=== PATIENT | male | born 1935 | race Caucasian/White ===

== ENCOUNTER 2018-06-02 15:48 | Emergency (ER) | payer MEDICARE, BC ==
[2018-06-02] MEDS ORDERED: Ondansetron PF 4 MG/2 ML Vial ONE (18:16)
[2018-06-02] MEDS ORDERED: Morphine 4 MG/ML VIAL ONE (18:16)
[2018-06-02 18:24] LABS: Hemoglobin 13.5 g/dL (14.0-18.0); Mean Corpuscular Hemoglobin 27.9 pg (27.0-31.0); Mean Corpuscular Volume 85.4 fL (78.0-98.0); Red Blood Cell (RBC) Count 4.83 mill/uL (4.70-6.10); White Blood Cell (WBC) Count 9.3 thou/uL (4.8-10.8)
[2018-06-02 18:25] LABS: #Eosinphils 0.1 thou/uL (0.0-0.7); #Monocytes 0.8 thou/uL (0.11-0.59); #Neutrophils 7.3 thou/uL (1.40-6.50); %Basophils 0.4 % (0.0-1.0); %Eosinophils 1.2 % (0.0-10.0); %Lymphocytes 10.9 % (21.0-51.0); %Monocytes 8.7 % (0.0-10.0); %Neutrophils 78.7 % (42.0-75.0); Mean Corpuscular HGB CONC 32.7 g/dL (32.0-36.0); Platelet Count 183 thou/uL (130-400); RBC Distribution Width 14.9 % (11.5-14.5)
[2018-06-02 18:31] LABS: PTT 27.9 SEC (22.9-36.1); Prothrombin Time 13.4 SEC (12.0-14.7)
[2018-06-02 18:45] LABS: ALT (SGPT) 18 U/L (8-55); AST (SGOT) 16 U/L (5-34); Albumin 3.8 g/dL (3.4-4.8); Alkaline Phosphatase 100 U/L (40-150); Anion Gap 13 mmol/L (10-20); BUN (Urea Nitrogen) 36 mg/dL (8.4-25.7); Bilirubin, Total 0.9 mg/dL (0.2-1.2); CK (CPK) 113 U/L (30-200); Calc. Creatinine Clearance 0 mL/min (70-130); Carbon Dioxide 29 mmol/L (23-31); Chloride 101 mmol/L (98-107); Estimated GFR-MDRD 23; Globulin 3.3 g/dL (2.4-3.5); Glucose 133 mg/dL (83-110); Lipase 7 U/L (8-78); Potassium 4.1 mmol/L (3.5-5.1); Protein, Total 7.1 g/dL (5.8-8.1); Sodium 139 mmol/L (136-145)
--- NOTE | 2018-06-02 18:55 | CT ---
FExam: CT brain Provided clinical history: Trauma FINDINGS: Comparison 07/28/2013. The ventricular system is normal in size and morphology. No evidence for intrac ranial hemorrhage or mass effect. The extracranial soft tissues and osseous structures demonstrate no evidence for an acute process. Mucosal thickening involves the sphenoid sinus. Vascular calcificatio ns are seen. IMPRESSION: No evidence for intracranial hemorrhage or mass effect.
--- NOTE | 2018-06-02 19:02 | CT ---
FExam: CT cervical spine without contrast Provided clinical history: Trauma FINDINGS: Comparison examination [facility] 05/30/2018. Type III odontoid fracture is redemo nstrated. There is less distraction at the portion of the fracture that extends through the lateral m ass and foramen transversarium right of midline. No additional fracture is evident. No evidence for c hange in spinal alignment. Extensive osteophyte formation emanates from the anterior aspects of the c ervical spine. The visualized lung apices appear clear. Minimal prevertebral soft tissue swelling. Va scular calcifications are seen. IMPRESSION: Known type III odontoid fracture is redemonstrated.
--- NOTE | 2018-06-02 19:16 | CT ---
FExam: CT chest, abdomen, and pelvis without contrast Provided clinical history: Trauma FINDINGS: The heart, pericardium and great vessels are suboptimally evaluated in the absence of IV contrast mat erial. Vascular calcification including coronary calcium is demonstrated. There is trace right pleura l fluid. The lungs are free of significant opacity. No pleural fluid or pneumothorax apparent. No alma dence for thoracic lymph node enlargement. The airway appears patent and of normal caliber. The solid abdominal organs are suboptimally evaluated due to absence of IV contrast material but demo nstrate no evidence for an acute process. Probable simple cyst involving left kidney, incompletely ch aracterized. Gallstones are seen. Vascular calcifications are noted. No bowel dilatation, inflammator y fat stranding, free fluid or free air apparent. Fat-containing umbilical hernia. Nondisplaced right L1, L2 and L3 transverse process fractures. 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 IMPRESSION: 1. Nondisplaced right L1, L2 and L3 transverse process fractures. 2. No additional acute abnormality is evident limitations due to lack of IV contrast.
== END 2018-06-02 23:02 ==
LOC: ERS 15:48
DX: S12.100A Unspecified displaced fracture of second cervical vertebra, initial encounter for closed fracture (principal); S32.029A Unspecified fracture of second lumbar vertebra, initial encounter for closed fracture; S32.039A Unspecified fracture of third lumbar vertebra, initial encounter for closed fracture; S32.019A Unspecified fracture of first lumbar vertebra, initial encounter for closed fracture; K21.9 Gastro-esophageal reflux disease without esophagitis; E78.5 Hyperlipidemia, unspecified; I12.9 Hypertensive chronic kidney disease with stage 1 through stage 4 chronic kidney disease, or unspecified chronic kidney disease; N18.4 Chronic kidney disease, stage 4 (severe); Z86.73 Personal history of transient ischemic attack (TIA), and cerebral infarction without residual deficits; E11.9 Type 2 diabetes mellitus without complications; Z79.899 Other long term (current) drug therapy; Z79.82 Long term (current) use of aspirin; Z79.4 Long term (current) use of insulin; W19.XXXA Unspecified fall, initial encounter
CPT/HCPCS: 36415; 70450; 71250; 72125; 74177; 80053; 82550; 83690; 83880; 84484; 85025; 85610; 85730; 93005; 96361; 96374; 96375; J2270; J2405

== ENCOUNTER 2018-07-08 15:02 | Outpatient (CLI) | payer MEDICARE, BC ==
--- NOTE | 2018-07-08 16:19 | CT ---
CT Cervical Spine WO Con HISTORY: Follow-up of cervical spine fracture. Patient is having worsening pain COMPARISON: 06/02/2018 study. FINDINGS: Prominent bridging anterior osteophytic changes are seen extending from C2 to the T1 level. There is new compression changes involving the superior endplate of T1 in addition there are bilateral fractures at C7 which extend through the superior articular facet and pedicle region and ar e nondisplaced. Both of these findings are new as compared to the prior exam. The base of dens fracture is not displaced however there is increased lucency and widening across the fracture line as compared to the prior examination. IMPRESSION: 1. Worsened appearance to the fracture along the base of the dens. The fracture is not displaced perdomo armani there is increased lucency associated the fracture line. 2. Development of compression changes involving the superior endplate of T1 fracture line extends thr ough to the inferior endplate. 3. Bilateral facet/pedicle fractures at C7 also new. 4. Findings telephoned to Dr. Patricia Ochoa's PA.
== END 2018-07-08 15:03 | disposition home or self-care (01) ==
LOC: TBSIIMAG 15:02
PROVIDERS: ATTEND Neurological Surgery
DX: S12.601A Unspecified nondisplaced fracture of seventh cervical vertebra, initial encounter for closed fracture (principal); S22.019A Unspecified fracture of first thoracic vertebra, initial encounter for closed fracture
CPT/HCPCS: 72125

== ENCOUNTER 2018-08-05 13:32 | Outpatient (CLI) | payer MEDICARE, BC ==
--- NOTE | 2018-08-05 14:05 | RAD ---
XR Cerv Sp Ap Lat STANDARD History: [Fall from a tractor. Follow-up injury.] Comparison: CT cervical spine July 08, 2018. Findings: No further displacement of the transversely oriented odontoid fracture through the base of the odontoid process. T1 fracture not well seen. The bilateral C7 pars interarticularis fractures are not well appreciated. Bridging anterior osteophytes of the cervical spine without significant degenerative disc space heigh t loss. Impression: No further displacement of the C2 fracture extending through the body as well as the bila teral C1/C2 facets. And right foramen transversarium.
== END 2018-08-05 13:33 | disposition home or self-care (01) ==
LOC: TBSIIMAG 13:32
PROVIDERS: ATTEND Neurological Surgery
DX: S12.9XXA Fracture of neck, unspecified, initial encounter (principal)
CPT/HCPCS: 72040

== ENCOUNTER 2018-09-11 15:09 | Outpatient (CLI) | payer MEDICARE, BC ==
--- NOTE | 2018-09-11 17:15 | RAD ---
CERVICAL SPINE 4 VIEWS: HISTORY: Followup cervical fracture. COMPARISON: Comparison is made to cervical spine film of 08/05/2018. FINDINGS: A dense fracture has been previously described involving the base of the dens suggesting a probable t ype III fracture which may involve the lateral masses. There is slight displacement; however, this does not appear to be significantly changed from 08/05/2018 . Alignment below C2 is maintained and is stable. Large anterior bridging osteophytes throughout the c ervical spine are again noted. IMPRESSION: C2 fracture appears stable from 08/05/2018. POS: [facility]
== END 2018-09-11 15:10 | disposition home or self-care (01) ==
LOC: TBSIIMAG 15:09
PROVIDERS: ATTEND Neurological Surgery
DX: S12.100D Unspecified displaced fracture of second cervical vertebra, subsequent encounter for fracture with routine healing (principal)
CPT/HCPCS: 72040

== ENCOUNTER 2022-03-02 14:59 | Observation (INO) | payer MEDICARE, BC ==
[2022-03-02 15:49] LABS: #Eosinphils 0.1 thou/uL (0.0-0.7); #Lymphocytes 1.4 thou/uL (1.20-3.40); #Monocytes 0.6 thou/uL (0.11-0.59); #Neutrophils 3.4 thou/uL (1.40-6.50); %Basophils 0.2 % (0.0-1.0); %Eosinophils 2.4 % (0.0-10.0); %Lymphocytes 25.1 % (21.0-51.0); %Neutrophils 61.2 % (42.0-75.0); Hemoglobin 12.5 g/dL (14.0-18.0); Mean Corpuscular HGB CONC 33.8 g/dL (32.0-36.0); Mean Corpuscular Hemoglobin 32.4 pg (27.0-31.0); Mean Corpuscular Volume 95.9 fl (78.0-98.0); Mean Platelet Volume 8.7 fL (7.4-10.4); Platelet Count 192 10x3/uL (130-400); RBC Distribution Width 12.6 % (11.5-14.5); Red Blood Cell (RBC) Count 3.86 mill/uL (4.70-6.10); White Blood Cell (WBC) Count 5.5 10x3/uL (4.8-10.8)
[2022-03-02 16:00] LABS: INR-International Normal Ratio 0.9; PTT 29.7 sec (22.9-36.1); Prothrombin Time 12.8 sec (12.0-14.7)
[2022-03-02 16:14] LABS: ALT (SGPT) 46 U/L (8-55); AST (SGOT) 40 U/L (5-34); Albumin 2.7 g/dL (3.4-4.8); Alkaline Phosphatase 132 U/L (40-110); Anion Gap 12 mmol/L (10-20); BUN (Urea Nitrogen) 35 mg/dL (8.4-25.7); Bilirubin, Total 0.5 mg/dL (0.2-1.2); Calc. Creatinine Clearance 0 mL/min (70-130); Calcium 8.3 mg/dL (7.8-10.44); Carbon Dioxide 18 mmol/L (23-31); Chloride 115 mmol/L (98-107); Estimated GFR 15; Globulin 4.1 g/dL (2.4-3.5); Glucose 102 mg/dL (83-110); Potassium 5.4 mmol/L (3.5-5.1); Protein, Total 6.8 g/dL (5.8-8.1); Sodium 140 mmol/L (136-145)
[2022-03-02] MEDS ORDERED: Sodium Bicarbonate 150 MEQ in Dextrose 5% in Water 1,000 ML IV SCH ×2 (17:00→18:30)
[2022-03-02] MEDS ORDERED: Nitroglycerin 2% Ointment 1 INCH/1 GM Packet ONE (17:46)
[2022-03-02] MEDS ORDERED: LOKELMA 10 GM PACKET PO SCH ×3 (18:30→21:00)
[2022-03-02] MEDS ORDERED: Ondansetron ODT 4 MG TAB PO PRN (18:33)
[2022-03-02] MEDS ORDERED: Ondansetron PF 4 MG/2 ML Vial IVP PRN (18:33)
[2022-03-02] MEDS ORDERED: Acetaminophen 325 MG TAB PO PRN (18:33)
[2022-03-02 18:34] LABS: CKMB 3.5 ng/mL (0-6.6)
[2022-03-02 20:23] LABS: SARS-CoV-2 NAA Rapid Test Not Detected (NotDetected)
[2022-03-02] MEDS: hydrALAZINE 25 MG TAB PO SCH (22:26)
[2022-03-03] VITALS: BMI 33.0
[2022-03-03] MEDS: hydrALAZINE 25 MG TAB PO SCH ×2 (00:20→10:08)
[2022-03-03] MEDS ORDERED: Sodium Bicarbonate 150 MEQ in Dextrose 5% in Water 1,000 ML IV SCH (02:15)
[2022-03-03 04:36] LABS: #Eosinphils 0.1 thou/uL (0.0-0.7); #Lymphocytes 1.4 thou/uL (1.20-3.40); #Monocytes 0.6 thou/uL (0.11-0.59); #Neutrophils 3.5 thou/uL (1.40-6.50); %Basophils 0.2 % (0.0-1.0); %Eosinophils 2.1 % (0.0-10.0); %Lymphocytes 25.5 % (21.0-51.0); %Monocytes 10.1 % (0.0-10.0); %Neutrophils 62.1 % (42.0-75.0); Mean Corpuscular HGB CONC 33.4 g/dL (32.0-36.0); Mean Corpuscular Hemoglobin 32.4 pg (27.0-31.0); Platelet Count 169 10x3/uL (130-400); RBC Distribution Width 12.6 % (11.5-14.5); Red Blood Cell (RBC) Count 3.38 mill/uL (4.70-6.10); White Blood Cell (WBC) Count 5.6 10x3/uL (4.8-10.8)
[2022-03-03 04:57] LABS: Anion Gap 10 mmol/L (10-20); BUN (Urea Nitrogen) 32 mg/dL (8.4-25.7); Calc. Creatinine Clearance 23 mL/min (70-130); Calcium 7.9 mg/dL (7.8-10.44); Carbon Dioxide 21 mmol/L (23-31); Chloride 112 mmol/L (98-107); Estimated GFR 17; Glucose 148 mg/dL (83-110); Potassium 4.5 mmol/L (3.5-5.1); Sodium 138 mmol/L (136-145)
[2022-03-03] MEDS ORDERED: Carvedilol 6.25 MG TAB PO SCH ×2 (08:00→09:00)
[2022-03-03] MEDS ORDERED: Aspirin 81 mg Enteric Coated Tablet PO SCH (09:00)
[2022-03-03] MEDS ORDERED: NIFEdipine XL 30 MG TAB PO SCH (09:00)
[2022-03-03 16:47] VITALS: BP 169/70; TEMP 98.2
[2022-03-03] MEDS ORDERED: Atorvastatin Calcium 10 MG TAB PO SCH (21:00)
== END 2022-03-03 16:40 | disposition home or self-care (01) ==
LOC: ERS 14:59 → ERHOLD 17:41 → 2NO 23:30
PROVIDERS: ADMIT Internal Medicine; ATTEND Internal Medicine
DX: I13.10 Hypertensive heart and chronic kidney disease without heart failure, with stage 1 through stage 4 chronic kidney disease, or unspecified chronic kidney disease (principal); E11.22 Type 2 diabetes mellitus with diabetic chronic kidney disease; N18.4 Chronic kidney disease, stage 4 (severe); N17.9 Acute kidney failure, unspecified; D63.1 Anemia in chronic kidney disease; E11.10 Type 2 diabetes mellitus with ketoacidosis without coma; E87.5 Hyperkalemia; K21.9 Gastro-esophageal reflux disease without esophagitis; E78.5 Hyperlipidemia, unspecified; I25.10 Atherosclerotic heart disease of native coronary artery without angina pectoris; E66.9 Obesity, unspecified; Z68.33 Body mass index [BMI] 33.0-33.9, adult; Z66 Do not resuscitate; Z86.73 Personal history of transient ischemic attack (TIA), and cerebral infarction without residual deficits; Z87.11 Personal history of peptic ulcer disease; Z79.4 Long term (current) use of insulin; Z79.82 Long term (current) use of aspirin; Z79.899 Other long term (current) drug therapy; Z95.5 Presence of coronary angioplasty implant and graft; Z20.822 Contact with and (suspected) exposure to COVID-19
CPT/HCPCS: 71045; 80048; 80053; 82553; 82962; 83605; 83880; 84484; 85025 ×2; 85610; 85730; 93005; 96374; 99285; U0002; 36415; 36416; G0378; J7070

== ENCOUNTER 2022-06-15 10:42 | Outpatient (CLI) | payer MEDICARE, BC | END 2022-06-15 10:43 | disposition home or self-care (01) | LOC: RAD 10:42 | PROVIDERS: ATTEND Internal Medicine Nephrology | DX: N18.5 Chronic kidney disease, stage 5 (principal); J90 Pleural effusion, not elsewhere classified; R91.8 Other nonspecific abnormal finding of lung field | CPT/HCPCS: 36415; 71046; 80048; 86705; 86706; 86803; 87340; 87522 ==

== ENCOUNTER 2022-06-26 20:36 | Inpatient (IN) | payer MEDICARE, BC ==
[2022-06-26 21:11] LABS: #Eosinphils 0.1 thou/uL (0.0-0.7); #Lymphocytes 1.3 thou/uL (1.20-3.40); %Basophils 0.4 % (0.0-1.0); %Eosinophils 0.6 % (0.0-10.0); %Lymphocytes 12.9 % (21.0-51.0); %Monocytes 9.2 % (0.0-10.0); Hemoglobin 11.8 g/dL (14.0-18.0); Mean Corpuscular HGB CONC 33.1 g/dL (32.0-36.0); Mean Corpuscular Hemoglobin 32.2 pg (27.0-31.0); Mean Corpuscular Volume 97.2 fl (78.0-98.0); Mean Platelet Volume 9.6 fL (7.4-10.4); Platelet Count 164 10x3/uL (130-400); RBC Distribution Width 13.1 % (11.5-14.5); Red Blood Cell (RBC) Count 3.67 mill/uL (4.70-6.10); White Blood Cell (WBC) Count 10.4 10x3/uL (4.8-10.8)
[2022-06-26 21:33] LABS: ALT (SGPT) 28 U/L (8-55); AST (SGOT) 33 U/L (5-34); Albumin 2.9 g/dL (3.4-4.8); Alkaline Phosphatase 111 U/L (40-110); Anion Gap 15 mmol/L (10-20); BUN (Urea Nitrogen) 63 mg/dL (8.4-25.7); Bilirubin, Total 0.3 mg/dL (0.2-1.2); CK (CPK) 59 U/L (30-200); Calc. Creatinine Clearance 0 mL/min (70-130); Calcium 8.3 mg/dL (7.8-10.44); Carbon Dioxide 16 mmol/L (23-31); Chloride 113 mmol/L (98-107); Estimated GFR 12; Globulin 4.1 g/dL (2.4-3.5); Glucose 189 mg/dL (83-110); Potassium 5.7 mmol/L (3.5-5.1); Sodium 138 mmol/L (136-145)
[2022-06-26] MEDS ORDERED: Dextrose 50% Abboject 50 ML SYRINGE ONE (22:22)
[2022-06-26] MEDS ORDERED: Insulin Regular 300 UNITS/3 ML VIAL ONE (22:22)
[2022-06-26] MEDS ORDERED: Sodium Bicarb 50 MEQ/50 ML VIAL ONE (22:22)
[2022-06-26] MEDS ORDERED: Dextrose 50% Abboject 50 ML SYRINGE SLOW IVP PRN (23:41)
[2022-06-26] MEDS ORDERED: Acetaminophen 325 MG TAB PO PRN (23:41)
[2022-06-26] MEDS ORDERED: Dextrose 5% in Water 1,000 ML IV PRN (23:41)
[2022-06-26] MEDS ORDERED: HumaLOG 300 UNITS/3 ML VIAL SC PRN ×2 (23:42)
[2022-06-27 01:23] LABS: HBSAB Concentration Less than 8.00 mIU/mL; HBSAg Index 0.24 S/CO (0-0.99); Hep B Core Total Ab Non-Reactive (NonReactive); Hep B Core Total Index 0.07 S/CO (0-0.79); Hep B Surf AB Non-Reactive (NonReactive); Hep B Surf Ag Non-Reactive S/CO (NonReactive)
[2022-06-27 01:26] LABS: Hep C IgG Ab Reflex HepC Qnt S/CO (NonReactive); Hep C Index 15.51 S/CO (0-0.79)
[2022-06-27 04:56] VITALS: BMI 32.8
[2022-06-27 05:19] LABS: #Eosinphils 0.1 thou/uL (0.0-0.7); #Lymphocytes 1.4 thou/uL (1.20-3.40); #Monocytes 1.1 thou/uL (0.11-0.59); #Neutrophils 6.7 thou/uL (1.40-6.50); %Basophils 0.3 % (0.0-1.0); %Eosinophils 0.6 % (0.0-10.0); %Lymphocytes 14.6 % (21.0-51.0); %Monocytes 11.5 % (0.0-10.0); %Neutrophils 73.1 % (42.0-75.0); Hemoglobin 10.9 g/dL (14.0-18.0); Mean Corpuscular HGB CONC 33.5 g/dL (32.0-36.0); Mean Corpuscular Hemoglobin 31.8 pg (27.0-31.0); Mean Platelet Volume 9.7 fL (7.4-10.4); Platelet Count 130 10x3/uL (130-400); RBC Distribution Width 12.8 % (11.5-14.5); Red Blood Cell (RBC) Count 3.43 mill/uL (4.70-6.10); White Blood Cell (WBC) Count 9.2 10x3/uL (4.8-10.8)
[2022-06-27 05:37] LABS: Anion Gap 15 mmol/L (10-20); BUN (Urea Nitrogen) 43 mg/dL (8.4-25.7); Calc. Creatinine Clearance 22 mL/min (70-130); Calcium 7.9 mg/dL (7.8-10.44); Carbon Dioxide 20 mmol/L (23-31); Chloride 110 mmol/L (98-107); Estimated GFR 16; Glucose 115 mg/dL (83-110); Potassium 4.5 mmol/L (3.5-5.1); Sodium 140 mmol/L (136-145)
[2022-06-27] MEDS ORDERED: NIFEdipine XL 30 MG TAB PO SCH (09:00)
[2022-06-27] MEDS: hydrALAZINE 25 MG TAB PO SCH ×2 (09:59→21:50)
[2022-06-27] MEDS: Aspirin 81 mg Enteric Coated Tablet PO SCH (09:59)
[2022-06-27] MEDS: Furosemide 40 MG TAB PO SCH ×2 (09:59→16:17)
[2022-06-27] MEDS: Heparin 5,000 UNITS/ML VIAL SC SCH ×3 (09:59→21:52)
[2022-06-27] MEDS: Carvedilol 6.25 MG TAB PO SCH ×2 (09:59→21:49)
[2022-06-27] MEDS ORDERED: Atorvastatin Calcium 40 MG TAB PO SCH (21:00)
[2022-06-28 05:20] LABS: #Eosinphils 0.1 thou/uL (0.0-0.7); #Lymphocytes 1.8 thou/uL (1.20-3.40); #Monocytes 0.9 thou/uL (0.11-0.59); #Neutrophils 4.8 thou/uL (1.40-6.50); %Basophils 0.5 % (0.0-1.0); %Eosinophils 0.8 % (0.0-10.0); %Lymphocytes 23.5 % (21.0-51.0); %Monocytes 11.3 % (0.0-10.0); %Neutrophils 63.8 % (42.0-75.0); Hemoglobin 10.3 g/dL (14.0-18.0); Mean Corpuscular HGB CONC 34.1 g/dL (32.0-36.0); Mean Corpuscular Hemoglobin 32.7 pg (27.0-31.0); Mean Corpuscular Volume 95.8 fl (78.0-98.0); Mean Platelet Volume 9.8 fL (7.4-10.4); Platelet Count 118 10x3/uL (130-400); RBC Distribution Width 12.8 % (11.5-14.5); Red Blood Cell (RBC) Count 3.14 mill/uL (4.70-6.10); White Blood Cell (WBC) Count 7.5 10x3/uL (4.8-10.8)
[2022-06-28 05:31] LABS: Anion Gap 12 mmol/L (10-20); BUN (Urea Nitrogen) 39 mg/dL (8.4-25.7); Calc. Creatinine Clearance 22 mL/min (70-130); Carbon Dioxide 24 mmol/L (23-31); Chloride 107 mmol/L (98-107); Potassium 4.2 mmol/L (3.5-5.1); Sodium 139 mmol/L (136-145)
[2022-06-28 05:32] LABS: Calcium 7.9 mg/dL (7.8-10.44); Estimated GFR 16; Glucose 126 mg/dL (83-110)
[2022-06-28] MEDS ORDERED: NIFEdipine XL 60 MG TAB PO SCH (09:00)
[2022-06-28] MEDS ORDERED: NIFEdipine XL 30 MG TAB PO SCH (09:00)
[2022-06-28] MEDS: hydrALAZINE 25 MG TAB PO SCH (10:01)
[2022-06-28] MEDS: Carvedilol 6.25 MG TAB PO SCH (10:01)
[2022-06-28] MEDS: Furosemide 40 MG TAB PO SCH (10:01)
[2022-06-28] MEDS: Aspirin 81 mg Enteric Coated Tablet PO SCH (10:03)
[2022-06-28] MEDS: Heparin 5,000 UNITS/ML VIAL SC SCH (10:03)
[2022-06-28 12:00] VITALS: BP 138/65; TEMP 98.1
[2022-06-28] MEDS ORDERED: Lidocaine 4% Patch TD SCH (12:00)
[2022-06-28 12:01] LABS: Iron 28 ug/dL (65-175); Iron Binding Capacity, Total 163 mcg/dL (261-462)
[2022-06-28 12:03] LABS: Iron 27 ug/dL (65-175); Iron Binding Capacity, Total 149 mcg/dL (261-462)
[2022-06-28] MEDS ORDERED: LIDOCAINE Patch Removal TOP SCH (23:59)
== END 2022-06-28 16:03 | disposition home or self-care (01) | DRG 640 ==
LOC: ERS 20:36 → ERHOLD 22:25 → 2NO 06-27 04:05
PROVIDERS: ADMIT Student in an Organized Health Care Education/Training Program; ATTEND Student in an Organized Health Care Education/Training Program
PROC: 5A1D70Z Performance of Urinary Filtration, Intermittent, Less than 6 Hours Per Day (ICD-10-PCS; principal; 2022-06-27)
DX: E87.70 Fluid overload, unspecified (principal); J96.01 Acute respiratory failure with hypoxia; N18.6 End stage renal disease; J91.8 Pleural effusion in other conditions classified elsewhere; I12.0 Hypertensive chronic kidney disease with stage 5 chronic kidney disease or end stage renal disease; E87.5 Hyperkalemia; Z66 Do not resuscitate; I25.10 Atherosclerotic heart disease of native coronary artery without angina pectoris; E78.5 Hyperlipidemia, unspecified; E11.22 Type 2 diabetes mellitus with diabetic chronic kidney disease; D63.1 Anemia in chronic kidney disease; E87.20 Acidosis, unspecified; R77.9 Abnormality of plasma protein, unspecified; E88.09 Other disorders of plasma-protein metabolism, not elsewhere classified; B19.20 Unspecified viral hepatitis C without hepatic coma; M54.2 Cervicalgia; D69.6 Thrombocytopenia, unspecified; Z79.899 Other long term (current) drug therapy; Z95.5 Presence of coronary angioplasty implant and graft; Z83.3 Family history of diabetes mellitus; Z82.49 Family history of ischemic heart disease and other diseases of the circulatory system; Z99.2 Dependence on renal dialysis; Z86.73 Personal history of transient ischemic attack (TIA), and cerebral infarction without residual deficits
CPT/HCPCS: 36415; 36416; 71045; 80048; 80053; 82550; 82728; 83540; 83550; 83880; 84484; 85025; 86704; 90935; 93005; 96374; 96375; G0257; J1644; J1815; J7999

== ENCOUNTER 2022-09-25 01:24 | Inpatient (IN) | payer MEDICARE, BC ==
[2022-09-25 02:35] LABS: #Monocytes 1.7 thou/uL (0.11-0.59); #Neutrophils 10.8 thou/uL (1.40-6.50); %Basophils 0.2 % (0.0-1.0); %Eosinophils 0.3 % (0.0-10.0); %Lymphocytes 9.4 % (21.0-51.0); %Monocytes 12.3 % (0.0-10.0); %Neutrophils 77.2 % (42.0-75.0); Hematocrit 31.9 % (42.0-52.0); Hemoglobin 10.5 g/dL (14.0-18.0); Mean Corpuscular HGB CONC 32.9 g/dL (32.0-36.0); Mean Corpuscular Volume 97.3 fl (78.0-98.0); Mean Platelet Volume 11.4 fL (7.4-10.4); Platelet Count 137 10x3/uL (130-400); RBC Distribution Width 14.4 % (11.5-14.5); Red Blood Cell (RBC) Count 3.28 mill/uL (4.70-6.10)
[2022-09-25 02:56] LABS: Anion Gap 14 mmol/L (10-20); Carbon Dioxide 27 mmol/L (23-31); Chloride 98 mmol/L (98-107); Potassium 3.9 mmol/L (3.5-5.1); Sodium 135 mmol/L (136-145)
[2022-09-25 02:57] LABS: ALT (SGPT) 22 U/L (8-55); AST (SGOT) 26 U/L (5-34); Albumin 2.7 g/dL (3.4-4.8); Alkaline Phosphatase 78 U/L (40-110); BUN (Urea Nitrogen) 38 mg/dL (8.4-25.7); Bilirubin, Total 0.7 mg/dL (0.2-1.2); Calc. Creatinine Clearance 0 mL/min (70-130); Estimated GFR 11; Globulin 3.7 g/dL (2.4-3.5); Glucose 118 mg/dL (83-110); Protein, Total 6.4 g/dL (5.8-8.1)
[2022-09-25] MEDS ORDERED: fentaNYL 50 mcg/mL 1 mL Vial ONE ×2 (02:58→06:06)
[2022-09-25] MEDS ORDERED: Boostrix 0.5 ML (Tdap) VIAL (>/=7 yrs of age) ONE (03:58)
[2022-09-25] MEDS ORDERED: Bacitracin 1 PK ONE (03:58)
[2022-09-25] MEDS ORDERED: Ondansetron PF 4 MG/2 ML Vial IVP PRN (05:08)
[2022-09-25] MEDS ORDERED: TETANUS, DIPHTHERIA TOX,ADULT (TDVAX) 0.5 ML VIAL IM ONE (05:08)
[2022-09-25] MEDS ORDERED: Ipratropium/Albuterol 3 ML NEB NEB PRN (05:08)
[2022-09-25] MEDS ORDERED: traMADol HCl 50 MG TAB PO PRN (05:13)
[2022-09-25] MEDS ORDERED: Sodium Chloride 0.9% 1,000 ML IV SCH (05:15)
[2022-09-25 07:21] VITALS: BMI 31.4
[2022-09-25] MEDS: Acetaminophen 500 MG TAB PO SCH ×3 (08:27→18:46)
[2022-09-25] MEDS: traMADol HCl 50 MG TAB PO SCH ×3 (08:27→23:01)
[2022-09-25] MEDS ORDERED: CEFAZOLIN 2 GM in Sodium Chloride 0.9% 100 ML IVPB SCH (08:30)
[2022-09-25 08:36] LABS: PTT 33.5 sec (22.9-36.1)
[2022-09-25] MEDS: Polyethylene Glycol 3350 17 GM Packet PO SCH (08:42)
[2022-09-25] MEDS: Senokot S 8.6-50 MG TAB PO SCH ×2 (08:43→20:58)
[2022-09-25] MEDS: Famotidine/PF 20 mg/2ml Vial SLOW IVP SCH (08:48)
[2022-09-25 13:20] LABS: #Basophils 0.1 thou/uL (0.0-0.2); #Eosinphils 0.2 thou/uL (0.0-0.7); #Monocytes 0.9 thou/uL (0.11-0.59); %Basophils 0.4 % (0.0-1.0); %Eosinophils 1.4 % (0.0-10.0); %Lymphocytes 5.6 % (21.0-51.0); %Monocytes 6.7 % (0.0-10.0); %Neutrophils 85.5 % (42.0-75.0); Hematocrit 39.2 % (42.0-52.0); Hemoglobin 12.8 g/dL (14.0-18.0); Mean Corpuscular HGB CONC 32.7 g/dL (32.0-36.0); Mean Corpuscular Hemoglobin 32.4 pg (27.0-31.0); Mean Corpuscular Volume 99.2 fl (78.0-98.0); Mean Platelet Volume 11.6 fL (7.4-10.4); Platelet Count 148 10x3/uL (130-400); RBC Distribution Width 14.3 % (11.5-14.5); Red Blood Cell (RBC) Count 3.95 mill/uL (4.70-6.10)
[2022-09-25 13:42] LABS: Anion Gap 19 mmol/L (10-20); BUN (Urea Nitrogen) 45 mg/dL (8.4-25.7); Calc. Creatinine Clearance 15 mL/min (70-130); Calcium 8.6 mg/dL (7.8-10.44); Carbon Dioxide 23 mmol/L (23-31); Chloride 99 mmol/L (98-107); Estimated GFR 11; Glucose 128 mg/dL (83-110); Phosphorus 5.5 mg/dL (2.3-4.7); Potassium 4.8 mmol/L (3.5-5.1); Sodium 136 mmol/L (136-145)
[2022-09-25 14:11] LABS: Lactic Acid 1.9 mmol/L (0.5-2.2)
[2022-09-25] MEDS ORDERED: VANCOMYCIN 1.25 GM/250 ML BAG 1.25 GM in Premix Bag 1 BAG IVPB SCH (16:45)
[2022-09-25] MEDS ORDERED: Vancomycin Diaylsis Sliding Scale (Wt 71-99) FS SCH (17:30)
[2022-09-25] MEDS ORDERED: VANCOMYCIN 2 GRAM/500 ML BAG 2 GM in Premix Bag 1 BAG IVPB SCH (18:00)
[2022-09-25 23:19] LABS: Bacteria/HPF None Seen HPF (None Seen); Bilirubin Negative (Negative); Blood, Urine Trace (Negative); Clarity Clear (Clear); Glucose, Urine (Dipstick) 70 mg/dL (Negative); Ketone, Urine Negative (Negative); Leukocyte Negative Leu/uL (Negative); Nitrite Negative (Negative); Protein, Urine (Dipstick) 300 mg/dL (Neg-Trace); RBC/HPF 0-3 HPF (0-3); Specific Gravity, Urine 1.014 (1.002-1.036); Squamous Epithelial 0-3 HPF (0-3); WBC/HPF 0-3 HPF (0-3)
[2022-09-25] MEDS ORDERED: Sevoflurane 250 ML INH ANEST BOTTLE ONE (23:53)
[2022-09-26] MEDS: Acetaminophen 500 MG TAB PO SCH ×5 (00:13→23:13)
[2022-09-26] MEDS: traMADol HCl 50 MG TAB PO SCH ×3 (05:06→21:13)
[2022-09-26 06:41] LABS: INR-International Normal Ratio 1.1; PTT 31.5 sec (22.9-36.1); Prothrombin Time 14.1 sec (12.0-14.7)
[2022-09-26 07:12] LABS: #Basophils 0.1 thou/uL (0.0-0.2); #Eosinphils 0.4 thou/uL (0.0-0.7); #Monocytes 1.5 thou/uL (0.11-0.59); #Neutrophils 10.1 thou/uL (1.40-6.50); %Basophils 0.4 % (0.0-1.0); %Eosinophils 2.6 % (0.0-10.0); %Lymphocytes 9.7 % (21.0-51.0); %Monocytes 11.5 % (0.0-10.0); %Neutrophils 75.1 % (42.0-75.0); Hematocrit 35.6 % (42.0-52.0); Hemoglobin 11.9 g/dL (14.0-18.0); Mean Corpuscular HGB CONC 33.4 g/dL (32.0-36.0); Mean Corpuscular Hemoglobin 32.2 pg (27.0-31.0); Mean Platelet Volume 11.6 fL (7.4-10.4); Platelet Count 132 10x3/uL (130-400); RBC Distribution Width 14.3 % (11.5-14.5); White Blood Cell (WBC) Count 13.4 10x3/uL (4.8-10.8)
[2022-09-26 07:22] LABS: Mean Corpuscular Volume 96.2 fl (78.0-98.0)
[2022-09-26 08:12] LABS: Anion Gap 20 mmol/L (10-20); BUN (Urea Nitrogen) 57 mg/dL (8.4-25.7); Calc. Creatinine Clearance 13 mL/min (70-130); Calcium 8.1 mg/dL (7.8-10.44); Carbon Dioxide 22 mmol/L (23-31); Chloride 96 mmol/L (98-107); Estimated GFR 9; Glucose 127 mg/dL (83-110); Phosphorus 7.2 mg/dL (2.3-4.7); Potassium 4.3 mmol/L (3.5-5.1); Sodium 134 mmol/L (136-145)
[2022-09-26] MEDS ORDERED: Heparin 10,000 UNITS/ 10 ML VIAL ONE (08:37)
[2022-09-26] MEDS: Morphine 2 MG/ML VIAL SLOW IVP PRN ×3 (08:51→21:13)
[2022-09-26] MEDS: Senokot S 8.6-50 MG TAB PO SCH ×2 (08:52→21:13)
[2022-09-26] MEDS: Polyethylene Glycol 3350 17 GM Packet PO SCH (08:52)
[2022-09-26] MEDS: Famotidine/PF 20 mg/2ml Vial SLOW IVP SCH (08:52)
[2022-09-26 10:10] LABS: HBSAB Concentration Less than 8.00 mIU/mL; Hep B Surf AB Non-Reactive (NonReactive); Hep B Surf Ag Non-Reactive S/CO (NonReactive)
[2022-09-26] MEDS: Sevelamer Carbonate 800 MG TAB PO SCH ×2 (13:20→18:37)
[2022-09-26] MEDS: cefTRIAXone\\ROCEPHIN 2 GM in Sodium Chloride 0.9% 100 ML IVPB SCH (14:53)
[2022-09-27] MEDS: Acetaminophen 500 MG TAB PO SCH ×4 (05:11→23:04)
[2022-09-27] MEDS: traMADol HCl 50 MG TAB PO SCH ×3 (05:11→21:18)
[2022-09-27 05:43] LABS: #Basophils 0.1 thou/uL (0.0-0.2); #Eosinphils 0.3 thou/uL (0.0-0.7); #Monocytes 1.3 thou/uL (0.11-0.59); #Neutrophils 7.7 thou/uL (1.40-6.50); %Basophils 0.5 % (0.0-1.0); %Eosinophils 3.1 % (0.0-10.0); %Lymphocytes 12.7 % (21.0-51.0); %Monocytes 12.1 % (0.0-10.0); %Neutrophils 71.2 % (42.0-75.0); Hematocrit 33.5 % (42.0-52.0); Mean Corpuscular HGB CONC 32.8 g/dL (32.0-36.0); Mean Corpuscular Hemoglobin 31.9 pg (27.0-31.0); Mean Corpuscular Volume 97.1 fl (78.0-98.0); Mean Platelet Volume 11.1 fL (7.4-10.4); Platelet Count 150 10x3/uL (130-400); Red Blood Cell (RBC) Count 3.45 mill/uL (4.70-6.10); White Blood Cell (WBC) Count 10.8 10x3/uL (4.8-10.8)
[2022-09-27] MEDS: Sevelamer Carbonate 800 MG TAB PO SCH ×3 (08:13→16:52)
[2022-09-27] MEDS: Famotidine/PF 20 mg/2ml Vial SLOW IVP SCH (08:13)
[2022-09-27] MEDS: Senokot S 8.6-50 MG TAB PO SCH ×2 (08:13→21:18)
[2022-09-27] MEDS: Polyethylene Glycol 3350 17 GM Packet PO SCH ×2 (08:13→08:17)
[2022-09-27] MEDS: cefTRIAXone\\ROCEPHIN 2 GM in Sodium Chloride 0.9% 100 ML IVPB SCH (13:53)
[2022-09-28] MEDS: traMADol HCl 50 MG TAB PO SCH ×3 (05:09→22:36)
[2022-09-28] MEDS: Acetaminophen 500 MG TAB PO SCH ×4 (05:09→23:53)
[2022-09-28 05:16] LABS: #Eosinphils 0.3 thou/uL (0.0-0.7); #Monocytes 1.1 thou/uL (0.11-0.59); #Neutrophils 7.3 thou/uL (1.40-6.50); %Basophils 0.2 % (0.0-1.0); %Eosinophils 2.9 % (0.0-10.0); %Lymphocytes 9.7 % (21.0-51.0); %Monocytes 11.5 % (0.0-10.0); %Neutrophils 75.2 % (42.0-75.0); Hematocrit 32.8 % (42.0-52.0); Hemoglobin 10.8 g/dL (14.0-18.0); Mean Corpuscular HGB CONC 32.9 g/dL (32.0-36.0); Mean Corpuscular Hemoglobin 31.8 pg (27.0-31.0); Mean Corpuscular Volume 96.5 fl (78.0-98.0); Mean Platelet Volume 11.6 fL (7.4-10.4); Platelet Count 169 10x3/uL (130-400); White Blood Cell (WBC) Count 9.8 10x3/uL (4.8-10.8)
[2022-09-28] MEDS: Sevelamer Carbonate 800 MG TAB PO SCH ×3 (08:24→16:34)
[2022-09-28] MEDS: Polyethylene Glycol 3350 17 GM Packet PO SCH (08:25)
[2022-09-28] MEDS: Senokot S 8.6-50 MG TAB PO SCH ×2 (08:25→21:35)
[2022-09-28] MEDS: Famotidine/PF 20 mg/2ml Vial SLOW IVP SCH (08:25)
[2022-09-28] MEDS: cefTRIAXone\\ROCEPHIN 2 GM in Sodium Chloride 0.9% 100 ML IVPB SCH (13:48)
[2022-09-28] MEDS: Morphine 2 MG/ML VIAL SLOW IVP PRN (22:31)
[2022-09-28] MEDS: Acetaminophen/Codeine 30-300mg Tablet PO PRN (23:51)
[2022-09-29] MEDS: Acetaminophen/Codeine 30-300mg Tablet PO PRN ×2 (05:40→22:46)
[2022-09-29 05:41] LABS: #Eosinphils 0.2 thou/uL (0.0-0.7); #Monocytes 1.4 thou/uL (0.11-0.59); #Neutrophils 6.7 thou/uL (1.40-6.50); %Basophils 0.4 % (0.0-1.0); %Eosinophils 2.3 % (0.0-10.0); %Lymphocytes 9.1 % (21.0-51.0); %Monocytes 14.8 % (0.0-10.0); %Neutrophils 72.3 % (42.0-75.0); Hematocrit 36.3 % (42.0-52.0); Hemoglobin 12.1 g/dL (14.0-18.0); Mean Corpuscular HGB CONC 33.3 g/dL (32.0-36.0); Mean Corpuscular Hemoglobin 31.4 pg (27.0-31.0); Mean Corpuscular Volume 94.3 fl (78.0-98.0); Mean Platelet Volume 10.7 fL (7.4-10.4); Platelet Count 167 10x3/uL (130-400); RBC Distribution Width 13.9 % (11.5-14.5); Red Blood Cell (RBC) Count 3.85 mill/uL (4.70-6.10); White Blood Cell (WBC) Count 9.2 10x3/uL (4.8-10.8)
[2022-09-29 06:18] LABS: Anion Gap 15 mmol/L (10-20); BUN (Urea Nitrogen) 38 mg/dL (8.4-25.7); Calc. Creatinine Clearance 17 mL/min (70-130); Calcium 8.3 mg/dL (7.8-10.44); Carbon Dioxide 24 mmol/L (23-31); Chloride 97 mmol/L (98-107); Estimated GFR 13; Glucose 153 mg/dL (83-110); Phosphorus 4.4 mg/dL (2.3-4.7); Potassium 3.8 mmol/L (3.5-5.1); Sodium 132 mmol/L (136-145)
[2022-09-29] MEDS: Acetaminophen 500 MG TAB PO SCH ×3 (06:47→18:23)
[2022-09-29] MEDS: Sevelamer Carbonate 800 MG TAB PO SCH ×3 (09:47→18:44)
[2022-09-29] MEDS: Polyethylene Glycol 3350 17 GM Packet PO SCH (11:56)
[2022-09-29] MEDS: Famotidine/PF 20 mg/2ml Vial SLOW IVP SCH (11:56)
[2022-09-29] MEDS: hydrALAZINE 25 MG TAB PO SCH ×2 (11:56→21:04)
[2022-09-29] MEDS: Senokot S 8.6-50 MG TAB PO SCH ×2 (11:56→21:09)
[2022-09-29] MEDS: Carvedilol 6.25 MG TAB PO SCH ×2 (11:56→21:04)
[2022-09-29] MEDS: cefTRIAXone\\ROCEPHIN 2 GM in Sodium Chloride 0.9% 100 ML IVPB SCH (14:39)
[2022-09-30] MEDS: Acetaminophen 500 MG TAB PO SCH ×4 (00:09→17:02)
[2022-09-30] MEDS: Acetaminophen/Codeine 30-300mg Tablet PO PRN (04:16)
[2022-09-30 05:19] LABS: #Eosinphils 0.2 thou/uL (0.0-0.7); #Monocytes 1.2 thou/uL (0.11-0.59); #Neutrophils 6.1 thou/uL (1.40-6.50); %Basophils 0.5 % (0.0-1.0); %Eosinophils 2.6 % (0.0-10.0); %Lymphocytes 12.6 % (21.0-51.0); %Monocytes 13.9 % (0.0-10.0); %Neutrophils 69.5 % (42.0-75.0); Hematocrit 34.4 % (42.0-52.0); Hemoglobin 11.7 g/dL (14.0-18.0); Mean Corpuscular Hemoglobin 32.1 pg (27.0-31.0); Mean Corpuscular Volume 94.5 fl (78.0-98.0); Mean Platelet Volume 10.2 fL (7.4-10.4); Platelet Count 183 10x3/uL (130-400); RBC Distribution Width 13.9 % (11.5-14.5); Red Blood Cell (RBC) Count 3.64 mill/uL (4.70-6.10); White Blood Cell (WBC) Count 8.8 10x3/uL (4.8-10.8)
[2022-09-30 05:58] LABS: Anion Gap 17 mmol/L (10-20); BUN (Urea Nitrogen) 47 mg/dL (8.4-25.7); Calc. Creatinine Clearance 16 mL/min (70-130); Calcium 8.4 mg/dL (7.8-10.44); Carbon Dioxide 23 mmol/L (23-31); Chloride 98 mmol/L (98-107); Estimated GFR 11; Glucose 131 mg/dL (83-110); Magnesium 2.1 mg/dL (1.6-2.6); Phosphorus 5.3 mg/dL (2.3-4.7); Potassium 4.3 mmol/L (3.5-5.1); Sodium 134 mmol/L (136-145)
[2022-09-30] MEDS: Polyethylene Glycol 3350 17 GM Packet PO SCH (08:59)
[2022-09-30] MEDS: Carvedilol 6.25 MG TAB PO SCH ×2 (09:00→19:51)
[2022-09-30] MEDS: Senokot S 8.6-50 MG TAB PO SCH ×2 (09:00→19:51)
[2022-09-30] MEDS ORDERED: NIFEdipine XL 30 MG TAB PO SCH (09:00)
[2022-09-30] MEDS: Sevelamer Carbonate 800 MG TAB PO SCH ×3 (09:00→17:02)
[2022-09-30] MEDS: Furosemide 40 MG TAB PO SCH ×2 (09:00→17:02)
[2022-09-30] MEDS: Famotidine/PF 20 mg/2ml Vial SLOW IVP SCH (09:01)
[2022-09-30] MEDS: hydrALAZINE 25 MG TAB PO SCH ×2 (09:24→19:52)
[2022-09-30] MEDS ORDERED: NIFEdipine XL 60 MG TAB PO SCH ×2 (10:30)
[2022-09-30] MEDS ORDERED: Lidocaine 1% (PF) 30 ML VIAL ONE (12:41)
[2022-09-30] MEDS: cefTRIAXone\\ROCEPHIN 2 GM in Sodium Chloride 0.9% 100 ML IVPB SCH (14:10)
[2022-09-30] MEDS: NIFEdipine XL 60 MG TAB PO SCH (19:52)
[2022-10-01] MEDS: Acetaminophen 500 MG TAB PO SCH ×5 (00:40→23:01)
[2022-10-01] MEDS: Acetaminophen/Codeine 30-300mg Tablet PO PRN (01:45)
[2022-10-01] MEDS: hydrALAZINE 25 MG TAB PO SCH ×2 (08:40→20:18)
[2022-10-01] MEDS: Famotidine/PF 20 mg/2ml Vial SLOW IVP SCH (08:40)
[2022-10-01] MEDS: Carvedilol 6.25 MG TAB PO SCH ×2 (08:40→20:17)
[2022-10-01] MEDS: Furosemide 40 MG TAB PO SCH ×2 (08:41→17:11)
[2022-10-01] MEDS: Sevelamer Carbonate 800 MG TAB PO SCH ×3 (08:53→18:20)
[2022-10-01] MEDS: NIFEdipine XL 60 MG TAB PO SCH ×2 (08:54→20:29)
[2022-10-01] MEDS: Senokot S 8.6-50 MG TAB PO SCH ×2 (08:54→20:18)
[2022-10-01] MEDS: Polyethylene Glycol 3350 17 GM Packet PO SCH (08:54)
[2022-10-01 08:57] LABS: #Eosinphils 0.3 thou/uL (0.0-0.7); #Monocytes 0.9 thou/uL (0.11-0.59); #Neutrophils 6.1 thou/uL (1.40-6.50); %Basophils 0.2 % (0.0-1.0); %Eosinophils 3.5 % (0.0-10.0); %Monocytes 9.8 % (0.0-10.0); %Neutrophils 69.8 % (42.0-75.0); Hematocrit 34.2 % (42.0-52.0); Hemoglobin 11.2 g/dL (14.0-18.0); Mean Corpuscular HGB CONC 32.7 g/dL (32.0-36.0); Mean Corpuscular Hemoglobin 31.7 pg (27.0-31.0); Mean Corpuscular Volume 96.9 fl (78.0-98.0); Mean Platelet Volume 10.8 fL (7.4-10.4); Platelet Count 205 10x3/uL (130-400); RBC Distribution Width 14.3 % (11.5-14.5); Red Blood Cell (RBC) Count 3.53 mill/uL (4.70-6.10); White Blood Cell (WBC) Count 8.7 10x3/uL (4.8-10.8)
[2022-10-01 09:24] LABS: Anion Gap 16 mmol/L (10-20); BUN (Urea Nitrogen) 60 mg/dL (8.4-25.7); Calc. Creatinine Clearance 14 mL/min (70-130); Calcium 8.4 mg/dL (7.8-10.44); Carbon Dioxide 24 mmol/L (23-31); Chloride 98 mmol/L (98-107); Estimated GFR 10; Glucose 116 mg/dL (83-110); Magnesium 2.3 mg/dL (1.6-2.6); Phosphorus 5.8 mg/dL (2.3-4.7); Potassium 4.1 mmol/L (3.5-5.1); Sodium 134 mmol/L (136-145)
[2022-10-01] MEDS: cefTRIAXone\\ROCEPHIN 2 GM in Sodium Chloride 0.9% 100 ML IVPB SCH (13:16)
[2022-10-01] MEDS: Sodium Chloride 0.9% 250 ML 250 ML IV SCH ×2 (16:43→17:12)
[2022-10-01] MEDS ORDERED: Albumin 25% 25 GM/100 ML BOT IVPB SCH (17:30)
[2022-10-01] MEDS: CEFAZOLIN 1 GM in Sodium Chloride 0.9% 100 ML IVPB SCH (20:17)
[2022-10-01 21:45] LABS: ALT (SGPT) 16 U/L (8-55); AST (SGOT) 21 U/L (5-34); Albumin 2.9 g/dL (3.4-4.8); Alkaline Phosphatase 93 U/L (40-110); Anion Gap 18 mmol/L (10-20); BUN (Urea Nitrogen) 68 mg/dL (8.4-25.7); Bilirubin, Total 0.3 mg/dL (0.2-1.2); Calc. Creatinine Clearance 13 mL/min (70-130); Calcium 8.4 mg/dL (7.8-10.44); Carbon Dioxide 22 mmol/L (23-31); Chloride 97 mmol/L (98-107); Estimated GFR 9; Globulin 3.6 g/dL (2.4-3.5); Glucose 177 mg/dL (83-110); Potassium 4.4 mmol/L (3.5-5.1); Protein, Total 6.5 g/dL (5.8-8.1); Sodium 133 mmol/L (136-145)
[2022-10-01] MEDS ORDERED: Sodium Chloride 0.9% 250 ML IV SCH (22:00)
[2022-10-02 01:17] LABS: White Blood Cell (WBC) Count 9.1 10x3/uL (4.8-10.8)
[2022-10-02] MEDS: Acetaminophen 500 MG TAB PO SCH ×4 (04:08→23:05)
[2022-10-02 05:58] LABS: #Eosinphils 0.2 thou/uL (0.0-0.7); #Neutrophils 7.3 thou/uL (1.40-6.50); %Basophils 0.3 % (0.0-1.0); %Monocytes 10.8 % (0.0-10.0); %Neutrophils 76.2 % (42.0-75.0); Hemoglobin 10.6 g/dL (14.0-18.0); Mean Corpuscular HGB CONC 33.1 g/dL (32.0-36.0); Mean Corpuscular Hemoglobin 31.5 pg (27.0-31.0); Mean Corpuscular Volume 95.2 fl (78.0-98.0); Mean Platelet Volume 11.1 fL (7.4-10.4); Platelet Count 201 10x3/uL (130-400); RBC Distribution Width 13.9 % (11.5-14.5); Red Blood Cell (RBC) Count 3.36 mill/uL (4.70-6.10); White Blood Cell (WBC) Count 9.5 10x3/uL (4.8-10.8)
[2022-10-02 06:18] LABS: Anion Gap 19 mmol/L (10-20); BUN (Urea Nitrogen) 77 mg/dL (8.4-25.7); Calc. Creatinine Clearance 12 mL/min (70-130); Calcium 8.6 mg/dL (7.8-10.44); Carbon Dioxide 20 mmol/L (23-31); Chloride 98 mmol/L (98-107); Estimated GFR 8; Glucose 168 mg/dL (83-110); Potassium 4.3 mmol/L (3.5-5.1); Sodium 133 mmol/L (136-145)
[2022-10-02] MEDS: Carvedilol 6.25 MG TAB PO SCH ×2 (08:00→21:38)
[2022-10-02] MEDS: Furosemide 40 MG TAB PO SCH ×2 (08:00→17:09)
[2022-10-02] MEDS: Sevelamer Carbonate 800 MG TAB PO SCH ×3 (08:00→17:41)
[2022-10-02] MEDS: Senokot S 8.6-50 MG TAB PO SCH ×2 (08:00→21:39)
[2022-10-02] MEDS: NIFEdipine XL 60 MG TAB PO SCH ×2 (08:00→21:39)
[2022-10-02] MEDS: hydrALAZINE 25 MG TAB PO SCH ×2 (08:00→21:38)
[2022-10-02] MEDS: Polyethylene Glycol 3350 17 GM Packet PO SCH (08:00)
[2022-10-02] MEDS ORDERED: Heparin 10,000 UNITS/ 10 ML VIAL ONE ×2 (08:49→09:24)
[2022-10-02] MEDS: CEFAZOLIN 1 GM in Sodium Chloride 0.9% 100 ML IVPB SCH ×2 (09:00→21:30)
[2022-10-02] MEDS ORDERED: Lidocaine 2% PF 5 ML VIAL ONE (09:19)
[2022-10-02] MEDS ORDERED: Bupivacaine HCl 0.5%/Epinephrine 1:200,000/PF 30 ml Vial ONE (09:19)
[2022-10-02] MEDS ORDERED: fentaNYL 50 mcg/mL 1 mL Vial ONE (09:24)
[2022-10-02] MEDS ORDERED: Sodium Chloride 0.9% 100 ML ONE (09:42)
[2022-10-02] MEDS ORDERED: CEFAZOLIN 1 GM VIAL ONE (09:42)
[2022-10-02] MEDS ORDERED: PROPOFOL 200 MG/20 ML VIAL ONE (09:52)
[2022-10-02] MEDS ORDERED: Glycopyrrolate 0.2 MG/ML 5 ML SYRINGE ONE (09:52)
[2022-10-02] MEDS ORDERED: ePHEDrine Sulfate 50 MG/10 ML VIAL ONE (09:52)
[2022-10-02] MEDS ORDERED: Ketamine 50 MG/ML (10ML VIAL) ONE (10:07)
[2022-10-02] MEDS ORDERED: Heparin 5,000 UNITS/ML VIAL SC SCH (15:00)
[2022-10-02] MEDS: Acetaminophen/Codeine 30-300mg Tablet PO PRN (17:09)
[2022-10-02] MEDS: QUEtiapine 25 MG TAB PO SCH (21:39)
[2022-10-02] MEDS ORDERED: Lorazepam 2 MG/ML VIAL SLOW IVP PRN (21:59)
[2022-10-02] MEDS ORDERED: Haloperidol Lactate 5 MG/ML VIAL IM ONE (22:15)
[2022-10-02] MEDS ORDERED: Haloperidol Lactate 5 MG/ML VIAL IM SCH ×2 (22:15)
[2022-10-03] MEDS: Acetaminophen 500 MG TAB PO SCH ×3 (05:13→19:45)
[2022-10-03 06:14] LABS: Anion Gap 16 mmol/L (10-20); BUN (Urea Nitrogen) 40 mg/dL (8.4-25.7); Calc. Creatinine Clearance 17 mL/min (70-130); Carbon Dioxide 24 mmol/L (23-31); Chloride 98 mmol/L (98-107); Estimated GFR 12; Glucose 132 mg/dL (83-110); Potassium 4.2 mmol/L (3.5-5.1); Sodium 134 mmol/L (136-145)
[2022-10-03] MEDS ORDERED: CEFAZOLIN 2 GM in Sodium Chloride 0.9% 100 ML IVPB SCH (07:15)
[2022-10-03] MEDS: hydrALAZINE 25 MG TAB PO SCH ×2 (08:34→21:22)
[2022-10-03] MEDS: Sevelamer Carbonate 800 MG TAB PO SCH ×2 (08:34→19:45)
[2022-10-03] MEDS: Furosemide 40 MG TAB PO SCH ×2 (08:34→19:45)
[2022-10-03] MEDS: Carvedilol 6.25 MG TAB PO SCH ×2 (08:34→21:21)
[2022-10-03] MEDS: Saccharomyces boulardii 250 MG CAP PO SCH (08:35)
[2022-10-03] MEDS: Senokot S 8.6-50 MG TAB PO SCH ×2 (08:35→21:21)
[2022-10-03] MEDS: NIFEdipine XL 60 MG TAB PO SCH ×2 (08:35→21:21)
[2022-10-03] MEDS: Polyethylene Glycol 3350 17 GM Packet PO SCH (08:35)
[2022-10-03] MEDS ORDERED: Heparin 10,000 UNITS/ 10 ML VIAL ONE (09:16)
[2022-10-03] MEDS ORDERED: fentaNYL PF 100 MCG/2 ML SYRINGE ONE (13:19)
[2022-10-03] MEDS ORDERED: CEFAZOLIN 2 GM VIAL ONE (15:41)
[2022-10-03] MEDS ORDERED: Sodium Chloride 0.9% 100 ML ONE (15:42)
[2022-10-03] MEDS ORDERED: fentaNYL 50 mcg/mL 1 mL Vial ONE ×2 (15:56→18:44)
[2022-10-03] MEDS ORDERED: NEOSTIGMINE 3 MG/3 ML SYR 3 MG/3 ML SYRINGE ONE (16:42)
[2022-10-03] MEDS ORDERED: Rocuronium Bromide 10 MG/ML (10ML VIAL) ONE (16:42)
[2022-10-03] MEDS ORDERED: Lidocaine 1% PF 5 ML VIAL ONE (16:42)
[2022-10-03] MEDS ORDERED: Ondansetron PF 4 MG/2 ML Vial ONE (16:42)
[2022-10-03] MEDS ORDERED: PHENYLEPHRINE-NS 100 MCG/ML 10 ML SYRINGE ONE (16:42)
[2022-10-03] MEDS ORDERED: ePHEDrine Sulfate 50 MG/10 ML VIAL ONE (16:42)
[2022-10-03] MEDS ORDERED: Glycopyrrolate 0.2 MG/ML 5 ML SYRINGE ONE (16:42)
[2022-10-03] MEDS ORDERED: PROPOFOL 200 MG/20 ML VIAL ONE (16:42)
[2022-10-03] MEDS ORDERED: Dexamethasone 20 MG/5 ML VIAL ONE (16:42)
[2022-10-03] MEDS: CEFAZOLIN 1 GM in Sodium Chloride 0.9% 100 ML IVPB SCH ×2 (19:44→21:20)
[2022-10-03] MEDS: QUEtiapine 25 MG TAB PO SCH (21:22)
[2022-10-04] MEDS: Acetaminophen 500 MG TAB PO SCH ×2 (00:03→06:26)
[2022-10-04 06:19] LABS: #Monocytes 0.5 thou/uL (0.11-0.59); #Neutrophils 11.2 thou/uL (1.40-6.50); %Basophils 0.1 % (0.0-1.0); %Lymphocytes 4.6 % (21.0-51.0); %Monocytes 4.2 % (0.0-10.0); %Neutrophils 90.4 % (42.0-75.0); Hematocrit 30.3 % (42.0-52.0); Hemoglobin 9.8 g/dL (14.0-18.0); Mean Corpuscular HGB CONC 32.3 g/dL (32.0-36.0); Mean Corpuscular Hemoglobin 31.7 pg (27.0-31.0); Mean Corpuscular Volume 98.1 fl (78.0-98.0); Mean Platelet Volume 10.9 fL (7.4-10.4); Platelet Count 188 10x3/uL (130-400); RBC Distribution Width 14.6 % (11.5-14.5); Red Blood Cell (RBC) Count 3.09 mill/uL (4.70-6.10); White Blood Cell (WBC) Count 12.4 10x3/uL (4.8-10.8)
[2022-10-04 06:41] LABS: Anion Gap 19 mmol/L (10-20); BUN (Urea Nitrogen) 38 mg/dL (8.4-25.7); Calc. Creatinine Clearance 20 mL/min (70-130); Calcium 8.7 mg/dL (7.8-10.44); Carbon Dioxide 22 mmol/L (23-31); Chloride 98 mmol/L (98-107); Estimated GFR 15; Glucose 183 mg/dL (83-110); Magnesium 2.3 mg/dL (1.6-2.6); Phosphorus 6.7 mg/dL (2.3-4.7); Potassium 4.7 mmol/L (3.5-5.1); Sodium 134 mmol/L (136-145)
[2022-10-04] MEDS: CEFAZOLIN 1 GM in Sodium Chloride 0.9% 100 ML IVPB SCH ×2 (09:34→21:21)
[2022-10-04] MEDS: Saccharomyces boulardii 250 MG CAP PO SCH (09:34)
[2022-10-04] MEDS: Sevelamer Carbonate 800 MG TAB PO SCH ×3 (09:34→18:21)
[2022-10-04] MEDS: Senokot S 8.6-50 MG TAB PO SCH ×2 (09:34→21:21)
[2022-10-04] MEDS: Polyethylene Glycol 3350 17 GM Packet PO SCH (09:35)
[2022-10-04] MEDS: Furosemide 40 MG TAB PO SCH ×2 (09:35→18:18)
[2022-10-04] MEDS: hydrALAZINE 25 MG TAB PO SCH ×2 (09:53→21:20)
[2022-10-04] MEDS: Carvedilol 6.25 MG TAB PO SCH ×2 (09:53→21:20)
[2022-10-04] MEDS: NIFEdipine XL 60 MG TAB PO SCH ×2 (09:54→21:18)
[2022-10-04] MEDS: Acetaminophen 325 MG TAB PO SCH ×2 (12:44→18:22)
[2022-10-04] MEDS: QUEtiapine 25 MG TAB PO SCH (21:20)
[2022-10-05] MEDS: Acetaminophen 325 MG TAB PO SCH ×3 (00:51→13:00)
[2022-10-05 04:41] VITALS: TEMP 97.4
[2022-10-05 07:35] LABS: #Monocytes 0.9 thou/uL (0.11-0.59); #Neutrophils 13.7 thou/uL (1.40-6.50); %Basophils 0.1 % (0.0-1.0); %Monocytes 5.9 % (0.0-10.0); %Neutrophils 87.4 % (42.0-75.0); Hematocrit 26.8 % (42.0-52.0); Mean Corpuscular HGB CONC 33.6 g/dL (32.0-36.0); Mean Corpuscular Hemoglobin 32.3 pg (27.0-31.0); Mean Corpuscular Volume 96.1 fl (78.0-98.0); Mean Platelet Volume 11.4 fL (7.4-10.4); Platelet Count 191 10x3/uL (130-400); RBC Distribution Width 14.6 % (11.5-14.5); Red Blood Cell (RBC) Count 2.79 mill/uL (4.70-6.10); White Blood Cell (WBC) Count 15.7 10x3/uL (4.8-10.8)
[2022-10-05 08:05] VITALS: BP 113/54
[2022-10-05 08:10] LABS: Anion Gap 18 mmol/L (10-20); BUN (Urea Nitrogen) 69 mg/dL (8.4-25.7); Calc. Creatinine Clearance 14 mL/min (70-130); Calcium 8.3 mg/dL (7.8-10.44); Carbon Dioxide 23 mmol/L (23-31); Chloride 96 mmol/L (98-107); Estimated GFR 10; Glucose 212 mg/dL (83-110); Magnesium 2.4 mg/dL (1.6-2.6); Phosphorus 6.7 mg/dL (2.3-4.7); Potassium 4.3 mmol/L (3.5-5.1); Sodium 133 mmol/L (136-145)
[2022-10-05] MEDS: Furosemide 40 MG TAB PO SCH (09:25)
[2022-10-05] MEDS: Carvedilol 6.25 MG TAB PO SCH (09:25)
[2022-10-05] MEDS: Sevelamer Carbonate 800 MG TAB PO SCH ×2 (09:25→13:00)
[2022-10-05] MEDS: hydrALAZINE 25 MG TAB PO SCH (09:25)
[2022-10-05] MEDS: Polyethylene Glycol 3350 17 GM Packet PO SCH (09:26)
[2022-10-05] MEDS: Saccharomyces boulardii 250 MG CAP PO SCH (09:26)
[2022-10-05] MEDS: NIFEdipine XL 60 MG TAB PO SCH (09:26)
[2022-10-05] MEDS: Senokot S 8.6-50 MG TAB PO SCH (09:26)
[2022-10-05] MEDS: CEFAZOLIN 1 GM in Sodium Chloride 0.9% 100 ML IVPB SCH (14:48)
== END 2022-10-05 16:27 | DRG 521 ==
LOC: ERS 01:24 → SURG B 05:08 → SURG A 10-02 18:31
PROVIDERS: ADMIT Surgery; ATTEND Surgery
PROC: 5A1D70Z Performance of Urinary Filtration, Intermittent, Less than 6 Hours Per Day (ICD-10-PCS; 2022-09-26)
PROC: 0JH63XZ Insertion of Tunneled Vascular Access Device into Chest Subcutaneous Tissue and Fascia, Percutaneous Approach (ICD-10-PCS; principal; 2022-10-02)
PROC: 02HV33Z Insertion of Infusion Device into Superior Vena Cava, Percutaneous Approach (ICD-10-PCS; 2022-10-02)
PROC: B5181ZA Fluoroscopy of Superior Vena Cava using Low Osmolar Contrast, Guidance (ICD-10-PCS; 2022-10-02)
PROC: B548ZZA Ultrasonography of Superior Vena Cava, Guidance (ICD-10-PCS; 2022-10-02)
PROC: 02PYX3Z Removal of Infusion Device from Great Vessel, External Approach (ICD-10-PCS; 2022-10-02)
PROC: 0SRR01Z Replacement of Right Hip Joint, Femoral Surface with Metal Synthetic Substitute, Open Approach (ICD-10-PCS; 2022-10-03)
DX: S72.001A Fracture of unspecified part of neck of right femur, initial encounter for closed fracture (principal); A40.8 Other streptococcal sepsis; N18.6 End stage renal disease; T80.211A Bloodstream infection due to central venous catheter, initial encounter; I12.0 Hypertensive chronic kidney disease with stage 5 chronic kidney disease or end stage renal disease; N25.81 Secondary hyperparathyroidism of renal origin; W18.30XA Fall on same level, unspecified, initial encounter; E11.22 Type 2 diabetes mellitus with diabetic chronic kidney disease; I25.10 Atherosclerotic heart disease of native coronary artery without angina pectoris; S00.81XA Abrasion of other part of head, initial encounter; K21.9 Gastro-esophageal reflux disease without esophagitis; E78.00 Pure hypercholesterolemia, unspecified; E78.5 Hyperlipidemia, unspecified; Z95.1 Presence of aortocoronary bypass graft; Z79.82 Long term (current) use of aspirin; Z99.2 Dependence on renal dialysis; Z86.73 Personal history of transient ischemic attack (TIA), and cerebral infarction without residual deficits; Z79.899 Other long term (current) drug therapy; Z87.11 Personal history of peptic ulcer disease; D63.1 Anemia in chronic kidney disease; Y83.8 Other surgical procedures as the cause of abnormal reaction of the patient, or of later complication, without mention of misadventure at the time of the procedure
CPT/HCPCS: 36415; 36416; 36901; 70450; 71045; 72170; 72192; 80048; 80053; 81003; 81015; 82306; 82533; 83605; 83735; 83880; 83970; 84100; 84145; 85025; 85048; 85610; 85730; 86706; 86850; 86900; 86901; 87040; 87077; 87086; 87149; 87186; 87340; 90471; 90715; 90935; 93005; 93010; 93306; 93970; 94760; 96374; 96376; C1713; C1752; C1776; G0257; J0690; J0696; J1100; J1630; J1642; J1644; J2001; J2060; J2272; J2405; J2704; J3010; J3370; J3490; J7030; J7050; P9047; S0028